=== PATIENT | female | born 1950 | race Caucasian/White ===

== ENCOUNTER → 2017-06-04 | Outpatient (CLI) | payer MEDICARE, OTHER ==
[~2017-06-04] MED LIST: CONTRAST GIVEN MC PRN; IOHEXOL 300 MG/ML 75 ML VIAL IV ONE
--- NOTE | 2017-06-04 12:30 | RAD ---
CT abdomen with and without contrast 06/04/2017 at 1121 hours Indication: Right renal mass seen on ultrasound. Comparison: None available Technique: Multiple axial CT images of the abdomen were obtained before and after the administration of intravenous contrast. 75 mL Omnipaque 300 was administered intravenously. Findings: 13 mm hypodense lesion in the left hepatic lobe is felt to represent a simple hepatic cyst. 18 mm simple appearing right hepatic cyst is visualized. No suspicious hepatic masses are identified. Spleen, bilateral adrenal glands and pancreas are within normal limits. Gallbladder is present. No adjacent inflammatory changes are present. There is a 4.6 x 7.0 x 6.6 cm lobulated mass partially exophytic from the superior pole of the right kidney. There is extension into the renal hilum. The mass is mildly hypervascular. No evidence for renal vein thrombosis or thrombosis propagating into the IVC. Mildly prominent venous collateral vessels are present. There is no significant thickening of Gerota's fascia. No suspicious nodes identified within the abdomen. Abdominal aorta is normal in course and caliber with scattered atherosclerotic calcification. Single right renal artery. Left renal artery and accessory left renal artery are noted. No suspicious osseous lesions are identified. Impression: There is a 4.6 x 7.0 x 6.6 cm lobulated mass, partially exophytic from the superior pole the right kidney. There is extension into the right renal pelvis without evidence for renal vein thrombosis. No pathologically enlarged lymph nodes are identified within the abdomen. Findings are consistent with renal cell carcinoma until proven otherwise. PQRS Compliance Statement: One or more of the following individualized dose reduction techniques were utilized for this examination: 1. Automated exposure control 2. Adjustment of the mA and/or kV according to patient size 3. Use of iterative reconstruction technique
== END | disposition home or self-care (01) ==
LOC: CT 10:37
PROVIDERS: ATTEND Family Medicine
DX: N28.89 Other specified disorders of kidney and ureter (principal)
CPT/HCPCS: 74170; Q9967

== ENCOUNTER → 2018-04-06 | Outpatient (CLI) | payer MEDICARE, OTHER ==
[2018-04-06] MEDS: IOHEXOL 240 MG/ML 50ML VIAL. PO (09:30)
[2018-04-06] MEDS: IOHEXOL 300 MG/ML 100ML VIAL. IV (10:30)
== END | disposition home or self-care (01) ==
LOC: KCIC CT 09:13
DX: K76.89 Other specified diseases of liver (principal); K44.9 Diaphragmatic hernia without obstruction or gangrene; J98.11 Atelectasis
CPT/HCPCS: 74178; Q9966; Q9967

== ENCOUNTER 2019-07-18 22:54 | Emergency (ER) | payer MEDICARE ==
[~2019-07-18] VITALS: Ht 167.6 cm; Wt 79.4 kg
[2019-07-18 23:20] VITALS: BP 195/95
--- NOTE | 2019-07-18 23:33 | PHYS DOC ---
Adult General Chief Complaint Chief Complaint: EYE PROBLEMS HPI HPI Patient is a 68-year-old female who wears contacts. She presents tonight unable to remove the contact from her left eye. She states she's been trying but was afraid she would scratch her eye. She denies any other complaints at this time. [] Review of Systems Review of Systems Constitutional: Denies fever or chills [] Eyes: Per history of present illness[] HENT: Denies nasal congestion or sore throat [] Respiratory: Denies cough or shortness of breath [] Cardiovascular: No additional information not addressed in HPI [] All other systems were reviewed and found to be within normal limits, except as documented in this note. Current Medications Current Medications Current Medications Medications (Trade) Dose Ordered Sig/Edmund Start Time Stop Time Status Last Admin Dose Admin Tetracaine HCl (Tetracaine) 1 drop 1X ONCE 07/18/19 23:45 07/18/19 23:46 Allergies Allergies Allergies Coded Allergies Type Severity Reaction Last Updated Verified No Known Drug Allergies 06/04/17 No Physical Exam Physical Exam Constitutional: Well developed, well nourished, no acute distress, non-toxic appearance. []. [] Eyes: There is a clearish blue contact in the left eye. [] Neck: Normal range of motion, no tenderness, supple, no stridor. [] Cardiovascular:Heart rate regular rhythm, no murmur [] Lungs & Thorax: Bilateral breath sounds clear to auscultation [] Psychologic: Anxious[] EKG EKG [] Radiology/Procedures Radiology/Procedures [] Course & Med Decision Making Course & Med Decision Making Pertinent Labs and Imaging studies reviewed. (See chart for details) [ED course: Evaluation reveals a 68-year-old female with a contact stuck in her left eye. I was able to grab the contact with my gloved hand and removed without difficulty.] Dragon Disclaimer Dragon Disclaimer This electronic medical record was generated, in whole or in part, using a voice recognition dictation system. Departure Departure Impression: Primary Impression: Foreign body of left eye Disposition: HOME, SELF-CARE Condition: IMPROVED Referrals: CLEO NYE MD (PCP) Patient Instructions: Eye - Corneal Foreign Body Additional Instructions: Return to the emergency department with any new or concerning symptoms Problem Qualifiers Primary Impression: Foreign body of left eye Encounter type: initial encounter Qualified Codes: T15.92XA - Foreign body on external eye, part unspecified, left eye, initial encounter JEANNIE WYATT DO Jul 18, 2019 23:33
[2019-07-18] MEDS ORDERED: TETRACAINE 0.5% OPHTH SOLUTION 4ML BOTTLE. OU ONE (23:45)
== END 2019-07-18 23:45 | disposition home or self-care (01) ==
LOC: ER 22:54
DX: T15.82XA Foreign body in other and multiple parts of external eye, left eye, initial encounter (principal); X58.XXXA Exposure to other specified factors, initial encounter; Y93.89 Activity, other specified; Y92.89 Other specified places as the place of occurrence of the external cause; Y99.8 Other external cause status
CPT/HCPCS: 99284

== ENCOUNTER → 2019-07-18 | Outpatient (CLI) | payer MEDICARE, OTHER ==
--- NOTE | 2019-07-18 15:10 | KCIC ---
EXAM: Right shoulder, 4 views. HISTORY: Pain after fall. COMPARISON: None. FINDINGS: 4 views of the right shoulder obtained. There is no fracture, dislocation or subluxation. IMPRESSION: No acute osseous finding. Electronically signed by: Celsa Nielson MD (07/18/2019 3:07 PM) [facility]
== END | disposition home or self-care (01) ==
LOC: KCIC 13:34
PROVIDERS: ATTEND Family Medicine
DX: M25.511 Pain in right shoulder (principal)
CPT/HCPCS: 73030

== ENCOUNTER → 2020-07-18 | Outpatient (CLI) | payer MEDICARE ==
--- NOTE | 2020-07-18 11:34 | RAD ---
Pelvis and right hip 3 views INDICATION: Right hip pain FINDINGS: Intact pelvic ring. No fracture or dislocation shown. No significant degenerative changes apparent in the hips by x-ray. Incidental degenerative changes of lumbar spine noted. The soft tissues show formed stool in the large bowel. IMPRESSION: No acute osseous abnormality in the pelvis or right hip on x-ray. Electronically signed by: Brittany Scott MD (07/18/2020 11:32 AM) [id number]
== END | disposition home or self-care (01) ==
LOC: RAD 09:20
PROVIDERS: ATTEND Family Medicine
DX: M25.551 Pain in right hip (principal); M47.816 Spondylosis without myelopathy or radiculopathy, lumbar region
CPT/HCPCS: 73502

== ENCOUNTER → 2021-06-26 | Day surgery (SDC) | payer MEDICARE ==
[~2021-06-26] VITALS: Ht 167.6 cm; Wt 79.0 kg
[~2021-06-26] MED LIST changes: +AMLO-187 PO; +ATOR40TA59 PO; -CONTRAST GIVEN MC PRN; +HYDROmorphone 2 MG/ML VIAL IVP PRN; -IOHEXOL 300 MG/ML 75 ML VIAL IV ONE; +LEVO75TA5 PO; +LIDOCAINE 2% PF 5 ML VIAL. ONE; +LISI-517 PO; +MORPHINE SULFATE 2 MG/ML INJ. IVP PRN; +PROCHLORPERAZINE 10 MG/2 ML VIAL. IVP PRN; +PROPOFOL 10 MG/ML (20ML) VIAL. IV ONE; +fentaNYL PF VIAL 100 MCG/2 ML VIAL IVP PRN
[2021-06-26 06:56] VITALS: BP 155/82
[2021-06-26] MEDS: IV RINGERS,LACTATED 1000ML 1,000 ML IV SCH ×2 (07:02→08:21)
[2021-06-26 08:42] VITALS: BP 123/71
--- NOTE | 2021-06-26 09:09 | HP ---
ADMIT DATE: 06/26/2021 UPDATED HISTORY AND PHYSICAL REASON FOR CONSULTATION: History of colon polyps. HISTORY OF PRESENT ILLNESS: A 70-year-old female with past medical history significant for hypertension, hyperlipidemia, hypothyroidism, history of renal cancer, status post right nephrectomy, is seen for interval colonoscopy. Bowel habits are regular without diarrhea or constipation. Weight and appetite are stable and prior colonoscopies have revealed colon polyps in the remote past. FAMILY HISTORY: Unrevealing for colon cancer. She is otherwise without additional complaints. PAST MEDICAL HISTORY: Hypertension, hyperlipidemia, hypothyroidism, history of renal CA, status post nephrectomy. ALLERGIES: None. MEDICATIONS: Amlodipine, atorvastatin, levothyroxine, lisinopril. FAMILY HISTORY: Significant for hypertension with father and siblings. SOCIAL HISTORY: Former drinker, nonsmoker. ADDITIONAL PAST SURGICAL HISTORY: Status post hysterectomy, status post nephrectomy. REVIEW OF SYSTEMS: Per records. PHYSICAL EXAMINATION: GENERAL: Reveals a well-nourished, well-developed female. VITAL SIGNS: Temperature is 97.8, pulse 74, respiratory rate 18. LUNGS: Clear. CARDIOVASCULAR: Reveals an S1, S2, without S3, S4 or appreciable murmur. ABDOMEN: Revealed a soft abdomen, normal bowel sounds, without appreciable hepatosplenomegaly with hysterectomy incision and right nephrectomy incision. IMPRESSION: History of colonic polyps. RECOMMENDATIONS: Surveillance exam is recommended at this time. Risks and benefits of procedure were previously discussed including risk of hemorrhage and perforation. The patient is willing to proceed. TUAN/FARIAH DR: Dino TID: [id number] CC: CLEO NYE MD
== END | disposition home or self-care (01) ==
LOC: ENDOS 06:28
PROVIDERS: ATTEND Internal Medicine Gastroenterology
DX: Z12.11 Encounter for screening for malignant neoplasm of colon (principal); K64.0 First degree hemorrhoids; K57.30 Diverticulosis of large intestine without perforation or abscess without bleeding; K63.89 Other specified diseases of intestine; I10 Essential (primary) hypertension; E03.9 Hypothyroidism, unspecified; E78.00 Pure hypercholesterolemia, unspecified; M19.90 Unspecified osteoarthritis, unspecified site; Z90.710 Acquired absence of both cervix and uterus; Z86.010 Personal history of colon polyps; Z98.890 Other specified postprocedural states; Z86.73 Personal history of transient ischemic attack (TIA), and cerebral infarction without residual deficits; Z82.49 Family history of ischemic heart disease and other diseases of the circulatory system; Z79.899 Other long term (current) drug therapy
CPT/HCPCS: G0105; J2704; 45378

== ENCOUNTER → 2021-07-29 | Outpatient (CLI) | payer MEDICARE ==
[2021-06-26 08:42] VITALS: BP 123/71
[~2021-07-29] MED LIST changes: -HYDROmorphone 2 MG/ML VIAL IVP PRN; -LIDOCAINE 2% PF 5 ML VIAL. ONE; -MORPHINE SULFATE 2 MG/ML INJ. IVP PRN; -PROCHLORPERAZINE 10 MG/2 ML VIAL. IVP PRN; -PROPOFOL 10 MG/ML (20ML) VIAL. IV ONE; -fentaNYL PF VIAL 100 MCG/2 ML VIAL IVP PRN
--- NOTE | 2021-07-29 12:12 | KCIC ---
EXAM: DUAL ENERGY X-RAY ABSORPTIOMETRY (DEXA). HISTORY: Postmenopausal screening. Osteopenia. FINDINGS: The lowest measured T-score is -1.6 in the left total femur, based on a bone mineral densit y of 0.743 g/cm^2. Refer to the worksheets for full detail. No comparison examinations are available. IMPRESSION: Low bone mass. Bone mineral density yields a T-score between -1.0 and -2.5. Fracture risk is increase d. FRAX was not calculated. METHODOLOGY: Dual energy x-ray absorptiometry was performed to measure bone mineral density. The foll owing analysis is based on the 2019 Official Positions of the International Society for Clinical Dens itometry: Measurements of the hips and the average of L1-L4 are preferred. When the spine and/or hip cannot be feasibly measured or interpreted, or in the setting of hyperparathyroidism, distal radial bone minera l density may be measured. The lumbar spine T-score is based on the average bone mineral density of L1-L4. In the setting of art ifact or anatomic abnormality, some lumbar levels may be excluded, and the remaining levels used for calculation. A single lumbar level is not used for diagnosis, and if only a single level is available for assessment, another anatomic site will be used to assign a diagnosis. The hip T-score is based on the bone mineral density measurement of the femoral neck or total proxima l femur of either side, whichever is lowest. Bilateral mean values are not used for diagnosis. The forearm T-score is derived from 33% of the distal radius of the nondominant forearm. For postmenopausal and perimenopausal women, and men age 50 or older, of all ethnic groups, T-scores are calculated through comparison of the current measurement with the NHANES III database standard fo r females aged 20-29 years. The lowest T-score of the evaluated anatomic sites is used to a ssign a diagnosis based on the World Health Organization densitometric classification. In premenopausal females and males younger than age 50, a Z-score is calculated based on population s pecific reference data for patient sex and self-reported ethnicity. Electronically signed by: Cortney Cuellar MD (07/29/2021 12:09 PM) [id number]
== END ==
LOC: KCIC DEXA 10:16
PROVIDERS: ATTEND Family Medicine
DX: M85.88 Other specified disorders of bone density and structure, other site (principal)
CPT/HCPCS: 77080